=== PATIENT | male | born 1940 ===

== ENCOUNTER → 2023-03-25 08:06 | Outpatient (CLI) | payer MEDICARE, SELFPAY ==
--- NOTE | ~2023-03-25 | MR_ITS ---
EXAMINATION: MR knee LT wo con DATE: 03/25/2023 08:57 INDICATION: Internal derangement of knee. Left knee pain and swelling. TECHNIQUE: Magnetic resonance imaging (MRI) of the left knee was performed without intravenous contra st. Sequences included axial PD-weighted FS FSE, coronal PD-weighted FSE and PD-weighted FS FSE, sagi ttal PD-weighted FSE, and sagittal T2-weighted FS FSE. COMPARISON: None. FINDINGS: Medial compartment: Medial meniscus is normal. There is deep partial thickness cartilage loss of femoral condyle involvin g the central articular surface. There is cartilage surface irregularity of tibial condyle. Lateral compartment: Lateral meniscus is normal. Lateral compartment cartilage is normal. Patellofemoral compartment: There is shallow partial-thickness cartilage loss of patellar medial and lateral facets and median ri dge. There is cartilage surface irregularity of trochlea. Ligaments and tendons: The anterior and posterior cruciate ligaments are normal. Medial collateral ligament and lateral ninfa ateral ligament complex are normal. The patellar tendon is normal. Fluid: There is a moderate-sized knee joint effusion. There is mild prepatellar and superficial infrapatella r bursitis. IMPRESSION: 1. Moderate chondrosis of medial compartment and mild chondrosis of patellofemoral compartment. 2. Moderate-sized knee joint effusion. Reviewed, dictated and finalized at location A. MOLDER IMPRESSION: 1. Moderate chondrosis of medial compartment and mild chondrosis of patellofemo ral compartment. 2. Moderate-sized knee joint effusion.
== END ==
PROVIDERS: PCP Physician Assistant; Visit Provider Physician Assistant
DX: M23.92 Unspecified internal derangement of left knee (principal); M22.2X2 Patellofemoral disorders, left knee; M25.462 Effusion, left knee
CPT/HCPCS: 73721